=== PATIENT | male | born 1995 | race Caucasian/White ===

== ENCOUNTER 2022-07-22 20:28 | Emergency (ER) | payer SELFPAY ==
[2022-07-22] MEDS ORDERED: Ketorolac 60 MG/2 ML SDV IM ONE (20:46)
== END 2022-07-22 22:27 | disposition home or self-care (01) ==
LOC: MW.ED 20:28
DX: S50.12XA Contusion of left forearm, initial encounter (principal); W01.198A Fall on same level from slipping, tripping and stumbling with subsequent striking against other object, initial encounter
CPT/HCPCS: 73090; 96372; 99283; J1885